=== PATIENT | female | born 1985 | race African-American/Black ===

== ENCOUNTER 2016-09-26 05:45 | Day surgery (SDC) ==
[2016-09-26] MEDS ORDERED: LR 1,000 ML ONE ×2 (06:02→11:58)
[2016-09-26] MEDS ORDERED: PEPCID ONE (06:02)
[2016-09-26] MEDS ORDERED: REGLAN ONE (06:02)
[2016-09-26] MEDS ORDERED: KEFZOL 1 GM/D5W 50 ML ONE (06:02)
[2016-09-26] MEDS ORDERED: TRANSDERM-SCOP ONE (06:02)
[2016-09-26] MEDS ORDERED: BACITRACIN ONE (06:31)
[2016-09-26] MEDS ORDERED: METHYLENE BLUE 1% ONE (06:31)
[2016-09-26] MEDS: KEFZOL 1 GM/D5W 50 ML ONE ×2 (10:47→11:10)
[2016-09-26] MEDS ORDERED: DEMEROL ONE (11:38)
[2016-09-26] MEDS ORDERED: FENTANYL ONE (11:40)
[2016-09-26] MEDS ORDERED: DIPRIVAN 1% ONE (11:40)
[2016-09-26] MEDS ORDERED: PHENERGAN ONE (13:03)
[2016-09-26] MEDS ORDERED: NORCO-10 ONE ×2 (13:04→15:58)
[2016-09-26] MEDS ORDERED: LUBRIFRESH PM OPH OINTMENT ONE (15:56)
[2016-09-26] MEDS ORDERED: NEOSTIGMINE ONE (15:56)
[2016-09-26] MEDS ORDERED: NORCURON ONE (15:56)
[2016-09-26] MEDS ORDERED: ROBINUL ONE (15:56)
[2016-09-26] MEDS ORDERED: XYLOCAINE-MPF 2% ONE (15:57)
[2016-09-26] MEDS ORDERED: LR 3,000 ML ONE (15:57)
[2016-09-26] MEDS ORDERED: ZEMURON ONE (15:57)
[2016-09-26] MEDS ORDERED: DECADRON ONE (15:57)
[2016-09-26] MEDS ORDERED: QUELICIN (DOSE) ONE (15:57)
[2016-09-26 17:02] VITALS: BP 120/60
--- NOTE | 2016-09-26 18:16 | OPERATIVE NOTE ---
PROCEDURE DATE: 09/26/2016 PROCEDURE: Bilateral reduction mammoplasty. SURGEON: Dr. Floyd. 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 CPT Codes are 04098, reduction mammoplasty, and 78489-91, reduction mammoplasty of the other side. INDICATIONS FOR PROCEDURE: This patient is a 31-year-old, black female with large, heavy, dense, long breasts. She is an excellent candidate for bilateral reduction mammoplasty, and she was seen in the office for informed consent for this procedure on 09/24/2016. At that point, she understood that she would have reduction mammoplasty and the goal of the procedure is to reduce the size, the shape, and the weight of her breasts. She understood that exact bra cup size change cannot be guaranteed. She understood that exact pain relief cannot be guaranteed. She knows the risks include infection, blood loss, blood clots in legs, heart problems, lung problems, allergic reactions, or blood and serum collections in the operative sites that might require drainage. She understands exact size and shape cannot be guaranteed as with nonoperative breast can be some asymmetry from side to side. She knows her skin incisions will be around the areola, from the areola to the inframammary fold and within the inframammary fold, that is where the scars will be. She knows that her nipples will heal as pedicled nipples, there can be poor blood supply to the nipples and poor wound healing. She knows her nipple sensation can be decreased after this operation. She knows in the future pregnancies can alter the size and shape of her breasts and she may not be able to breastfeed. She knows in the future she needs to have routine mammography as ordered by her family physician or [employer] physician. DESCRIPTION OF PROCEDURE: The patient was brought to the operating after she was marked in outpatient surgery in sitting position. She went to the operating room and had general anesthesia. She was prepped and draped. The crucial corners of markings were tattooed with methylene blue. The nipples were marked with a 38 mm nipple marker. Then inferior pedicles that were 10 cm wide at the base were drawn on each breast. Both breasts were done in a similar fashion. The inferior pedicles were de-epithelialized. Then the upper breast skin flaps were incised with a knife and then dissected with electrocautery to make upper skin flaps approximately a centimeter and a half thick. Medial, central, and lateral breast segments were then resected. The breasts were irrigated with bacitracin solution and then the pedicles were tacked medially with a 2-0 Polysorb interrupted suture. She was tacked closed over drains and put in the sitting position. The size and shape of the breasts was found to be good. She was closed with some interrupted 3-0 Polysorb deep dermal sutures at the junction of the flaps followed by a running 3- 0 Polysorb deep dermal suture, followed by running 4-0 Biosyn subcuticular stitch. The drains were secured with silk drain stitches. She was put back in sitting position to allow for nipple exit. It was marked with a 30 mm nipple marker. This was de-epithelialized, then cut in a cruciate excision to allow protrusion of the nipples. The nipples were inset with 3-0 and 4-0 Polysorb interrupted deep dermal sutures, followed by running 4-0 Biosyn subcuticular stitch. The drains were secured with silk drain stitches. The total amount of resection for the right breast was 669 g, the total amount of resection for the left breast was 617 g. She tolerated the procedure well and was transported to the recovery room in good condition.
== END 2016-09-26 17:00 | disposition home or self-care (01) ==
LOC: OPS 05:45
PROVIDERS: ATTEND Surgery Plastic and Reconstructive Surgery
DX: N62 Hypertrophy of breast (principal); M54.9 Dorsalgia, unspecified
CPT/HCPCS: 88305; J0330; J0690; J1100; J2175; J3010; J7120; Q9968; J2710